=== PATIENT | male | born 1955 | race Caucasian/White ===

== ENCOUNTER 2025-01-25 08:53 | Outpatient (AMB) | payer MEDICARE, SELFPAY ==
--- OUTSIDE RECORDS SUMMARY | 2025-01-24 09:00 | XMS_ITS | Encounter Summary ---
Author Organization [facility] Address [address] [place] [address] Phone Care Team Providers Care Drum Puller Name Role Phone Alexis Desir MD Unavailable [phone] Ghulam Hancock MD Unavailable [phone] Alexis Desir MD Primary Care Provider [phone] Reason for Referral * Consultation (Within 1 month) - New Request Specialty Diagnoses / Procedures Referred By Juan Luis lawton Referred To Contact Alexis Desir MD [address] [place] [address], [address] [place] [address] Phone: tel: fax: mailto:[email or web address] Unknown, Lesia, Referral ID Status Reason Start Date Expiration Date V isits Requested Visits Authorized [id number] New Request 01/24/2025 01/18/2026 1 1 Reason for Visit * Reason Comments Follow Up Visit No complaints to [place]; BP continues to be erratic - has some home BP recordings on phone; Encounter Details Date Type Department Care Team (Late st Contact Info) Description 01/24/2025 9:00 AM EST Office Visit [facility] [address] [place] [address] [place] [address] Alexis Desir MD [address] [place] [address], [address] [place] [address] [email or web address] Primary hypertension (Primary Dx) Social History Tobacco Use Types Packs/Day Years Used Date Smoking Tobacco: Never Passive Smoke Exposure: Never Smokeless Tobacco: Never Alcohol Use Standard Drinks/Week Comments Yes 2 (1 standard drink = 0.6 oz pur e alcohol) Child or Family Care Answer Date Record ed Do you have problems with on e of the following making it difficult for you to work, study, or receive health care? No 04/11/2023 Education Answer Date Recorded Are you interested in more education? Not on ramone e 02/09/2024 Are you concerned about learning? Not on file 02/09/2024 No 02/09/2024 No 02/09/2024 Food Answer Date Recorded Within the past 6 months we worried whether our food would run out before we got money to buy more. Never True 04/11/2023 Within the past 6 months the food we bought just didn't last and we didn't have enough money to get more. Never True Residential Stability Answer Date Recor ded What is your housing situation today? I have guzman sing 04/11/2023 How many times have you move d in the past 12 months? Zero (I did not move) 04/11/2023 Paying for Meds Answer Date Recorded Do you have trouble paying for medicines? No 04/11/2023 Paying Utility Bills Answer Date Record ed Do you have trouble paying your heating or elect ricity bill? No 04/11/2023 Transportation Answer Date Recorded Has the lack of transportati on kept you from medical appointments or from getting medications? No 04/11/2023 Unemployment Answer Date Recorded Are you currently unemployed or working on a part-time or temporary basis, and looking for work? No 02/06/2022 Digital Access Answer Date Recorded No 04/11/2023 Yes 04/11/2023 Do you have reliable internet access at home? Ye s 04/11/2023 Do you have a device (e.g., phone, tablet, computer) with a working camera? Yes 04/11/2023 Intimate Partner Violence Answer Date R ecorded Are you denied basic needs s uch as food, clothing, or medical care? No 12/25/2024 In the past 12 months have y ou been in a relationship with a person who hurts, threatens, or tries to control you? No 12/25/2024 Are you denied basic needs s uch as food, clothing, or medical care? No 12/25/2024 In the past 12 months have y ou been in a relationship with a person who hurts, threatens, or tries to control you? 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, [employer] Not on file Not on file Not on file documented as of this encounter Last Filed Vital Signs Vital Sign Reading Time Taken Comments Blood Pressure 112/54 01/24/2025 9:02 AM EST Pulse 46 01/24/2025 9:02 AM EST Temperature - - Respiratory Rate - - Oxygen Saturation 98% 01/24/2025 9:02 AM EST Inhaled Oxygen Concentration - - Weight - - Height - - Body Mass Index - - documented in this encounter Miscellaneous Notes * Assessment & Plan Note - Alexis Desir MD - 01/24/2025 9:00 AM EST Associated Problem(s): Hypertensive disorder Orders: amLODIPine (NORVASC) 5 MG tablet; Take 1 tablet (5 mg total) by mouth daily. documented in this encounter Plan of Treatment Upcoming Encounters Date Type Department Care Team (Late st Contact Info) Description 01/26/2025 8:00 AM EST Office Visit [facility] [address] [facility] [address], [address] [place] [address] Ghulam Mata MD [address] [place] [address] 02/16/2025 9:00 AM EST Appointment [facility] [address] Alexis Desir MD [address] [place] [address] [email or web address] 02/16/2025 10:00 AM EST Appointment [address] [address] Alexis Desir MD [address] [place] [address] 02/16/2025 11:00 AM EST Appointment Non-Invasive Cardiology [address] [place] [address] Alexis Desir MD [address] [place] [address] [email or web address] 02/16/2025 12:00 PM EST Appointment [address] [address] Alexis Desir MD [address] [place] [address] Scheduled Referrals Name Type Priority Associated Diagnoses Order Schedule External Referral to Ophthalmology ([facility]) Outpatient Referral Routine Ordered: 01/24/2025 documented as of this encounter Visit Diagnoses Diagnosis Primary hypertension- Primary Unspecified essential hypertension documented in this encounter Additional Health Concerns Assessment Noted Time A Body Mass Index follow-up plan has been documented for the patient 04/23/2017 8:55 PM EST PHQ-2 Depression Total Score: 0 01/25/20 25 8:50 AM EST documented as of this encounter Care Teams Drum Puller Relationship Specialty Start Date End Date Alexis Desir MD [address] [place] [address] [email or web address] PCP - General 03/17/17 Alexis Desir MD [address] [place] [address], [address] [place] [address] [email or web address] Historical LMR Provider 12/26/16 Ghulam Hancock MD [address] [place], [place] [address] [place] [address] [email or web address] Historical LMR Provider 12/26/16 documented as of this encounter Additional Source Comments The information contained in this document represents components of the legal health record. It is not the complete legal health record.[facility]
--- NOTE | 2025-01-25 09:03 | MHC.OFFVIS ---
Intake Visit Reasons: erectile dysfunction/incontinence Intake Note: New patient presents today for initial visit for erectile dysfunction/incontinence Urology Medication:Sildenafil Blood Thinner:None Antibiotic Allergies:None PVR:0ml Allergies No Known Allergies Allergy (Verified 01/25/25 09:03) HPI Comments Details: 01/25/25-Virgilio is a 69-year-old male here as a new patient evaluation. History of Present Illness The patient is a 69-year-old individual presenting with erectile dysfunction and LUTS. The urinary urgency has been a significant concern, with the patient experiencing nocturia, needing to urinate three times during the night, and urgency upon standing, which has been progressively worsening over time. The patient does not wear pads and has not been on any medication for urinary symptoms prior to this visit. For erectile dysfunction, the patient has been on (HIMS) tadalafil 5 mg daily for six months, which has significantly improved symptoms. The patient previously tried sildenafil and testosterone shots with another urologist but found the current regimen more effective. Plan 1. Erectile Dysfunction - Continue tadalafil 5 mg daily as it has been effective. The patient prefers to use the HIMS versus obtain prescription from this office - Labs-- testosterone levels and PSA testing as part of ongoing management. 2. Urinary Urgency - Initiate tamsulosin in the evening to improve urinary flow. Discussed that there can be bladder muscle mottling causing thickening of the bladder muscle which may contribute to bladder spasms and may need other therapy management. - Order an ultrasound of the prostate and bladder to assess structural changes. - Follow-up in three months to evaluate the effectiveness of the treatment plan. [facility] Medical History Right wrist sprain Bursitis of left shoulder Urge incontinence Review of Systems Const All systems reviewed & are unremarkable except as noted in HPI and below Reports no additional complaints Eyes Reports no additional complaints ENT Reports no additional complaints Card Reports no additional complaints Resp Reports no additional complaints GI Reports no additional complaints Reports as per HPI Musc Reports no additional complaints Skin/Breast Reports system reviewed and no additional complaints, except as documented Neuro Reports no additional complaints Psych Reports no additional complaints Endo Reports no additional complaints Vijay/Lymph Reports no additional complaints Aller/Immun Reports no additional complaints Physical Exam Const General: healthy appearing, no acute distress and well developed Orientation/consciousness: patient oriented x3 HEENT Head: Yes normocephalic and Yes atraumatic Eyes Conjunctivae: conjunctivae normal Neck Neck: Yes normal visual inspection Chest Chest palpation & inspection: normal inspection of the chest Resp Effort & Inspection: normal respiratory effort GI Inspection: Yes normal to inspection Neuro General: patient oriented x3 Psych Appearance: grossly normal Affect: normal affect Assessment & Plan Assessment & Plan (1) Nocturia: Code(s): R35.1 - Nocturia Category: Medical (2) BPH loc w urin obs/LUTS: Code(s): N40.1 - Benign prostatic hyperplasia with lower urinary tract symptoms Category: Medical (3) Erectile dysfunction: Code(s): N52.9 - Male erectile dysfunction, unspecified Category: Medical (4) Urinary urgency: Code(s): R39.15 - Urgency of urination Category: Medical Plan Plan 1. Erectile Dysfunction - Continue tadalafil 5 mg daily as it has been effective. The patient prefers to use the HIMS versus obtain prescription from this office - Labs-- testosterone levels and PSA testing as part of ongoing management. 2. Urinary Urgency - Initiate tamsulosin in the evening to improve urinary flow. Discussed that there can be bladder muscle mottling causing thickening of the bladder muscle which may contribute to bladder spasms and may need other therapy management. - Order an ultrasound of the prostate and bladder to assess structural changes. - Follow-up in three months to evaluate the effectiveness of the treatment plan. Orders: Orders Testosterone, Free/Total Today N40.1 - Benign prostatic hyperplasia with lower urinary tract symptoms, R35.1 - Nocturia US retroperitoneal comp Today N40.1 - Benign prostatic hyperplasia with lower urinary tract symptoms, R35.1 - Nocturia PSA,Total (Free>4and<10) Today N40.1 - Benign prostatic hyperplasia with lower urinary tract symptoms, R35.1 - Nocturia Medications: New tamsulosin (Flomax) 0.4 mg PO BEDTIME 90 caps 2RF Coding Level of Care Code New Pt Level 4 (04143) Diagnoses Nocturia R35.1 BPH loc w urin obs/LUTS N40.1 Erectile dysfunction N52.9 Urinary urgency R39.15 IIEF-5 Questionnaire IIEF-5 How do you rate your confidence that you could get and keep an erection?: 5-Very High When you had erections with sexual stimulation, how often were your erections hard enough for penetration?: Almost always/ always During sexual intercourse, how often were you able to maintain your erection after your had penetrated(entered) your partner?: Most times(much more than half the time) During sexual intercourse, how difficult was it to maintain your erection to completion of intercourse?: Not Difficult When you attempted sexual intercourse, how often was it satisfactory for you?: Most times(much more than half the time) IIEF-5 Score IIEF-5 Score: 18
--- OUTSIDE RECORDS SUMMARY | 2025-01-25 10:33 | XMS_ITS | Encounter Summary ---
Author Organization [facility] Address [address] [facility] [address] [place] [address] Phone Care Team Providers Care Autopsy Pathologist Name Role Phone Alexis Desir MD Unavailable [phone] Ghulam Hancock MD Unavailable [phone] Alexis Desir MD Primary Care Provider [phone] Reason for Referral * - Closed Specialty Diagnoses / Procedures Referred By Juan Luis lawton Referred To Contact Diagnoses Dyspnea on exertion Procedures MCT (Mobile Cardiac Telemetry) Santiago Liang DO Phone: tel: fax: mailto: Referral ID Status Reason Start Date Expiration Date Visits Re quested Visits Authorized [id number] Closed 09/26/2021 09/26/2022 1 1 Encounter Details Date Type Department Care Team (Latest Contact Info) Description 09/26/2021 Ancillary Orders [facility] [address] [facility] 3rd Floor, [address] [place] [address] Santiago Liang DO [address] [facility] [address] [facility] [address] [place] [address] [email or web address] Dyspnea on exertion Social History Tobacco Use Types Packs/Day Years Used Date Smoking Tobacco: Never Smokeless Tobacco: Never Alcohol Use Standard Drinks/Week Comments Yes 3 (1 standard drink = 0.6 oz pur e alcohol) one beer a week Sex and Gender Information Value Date Recorded Sex Assigned at Male 01/23/2022 11:56 AM EST Legal Sex Male 9:56 PM EDT Gender Identity Male 01/23/2022 11:56 AM EST Sexual Orientation Not on file Occupation Industry Job Start Date Job End Date 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, 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, [employer] Not on file Not on file Not on file documented as of this encounter Plan of Treatment Upcoming Encounters Date Type Department Care Team (Late st Contact Info) Description 01/26/2025 8:00 AM EST Office Visit [facility] [address] [place] [address] 3rd Floor, [address] [place] [address] Ghulam Mata MD [address] [place] [address] 02/16/2025 9:00 AM EST Appointment [address] [address] Alexis Desir MD [address] [place] [address] 02/16/2025 10:00 AM EST Appointment [address] [address] Alexis Desir MD [address] [place] [address] 02/16/2025 11:00 AM EST Appointment Non-Invasive Cardiology [address] [place] [address] Alexis Desir MD [address] [place] [address] 02/16/2025 12:00 PM EST Appointment [facility], [facility] [address] [place] [address] Alexis Desir MD [address] [place] [address] [email or web address] Scheduled Orders Name Type Priority Associated Diagnoses Orde r Schedule MCT (Mobile Cardiac Telemetry) Cardiac Monitors Routine Dyspnea on exertion Expected: 08/19/2021, Expires: 08/12/2022 documented as of this encounter Visit Diagnoses Diagnosis Dyspnea on exertion Other dyspnea and respiratory abnormality documented in this encounter Additional Health Concerns Assessment Noted Time A Body Mass Index follow-up plan has been documented for the patient 04/23/2017 8:55 PM EST PHQ-2 Depression Total Score: 0 04/25/19 22 1:03 PM EST documented as of this encounter Care Teams Autopsy Pathologist Relationship Specialty Start Date End Date Alexis Desir MD [address] [place] [address] [email or web address] PCP - General 03/17/17 Alexis Desir MD [address] [place] [address] Historical LMR Provider 12/26/16 Ghulam Hancock MD [address] [place] [address] [email or web address] Historical LMR Provider 12/26/16 documented as of this encounter Additional Source Comments The information contained in this document represents components of the legal health record. It is not the complete legal health record.[facility]
--- OUTSIDE RECORDS SUMMARY | 2025-01-25 10:34 | XMS_ITS | Encounter Summary ---
Author Organization [facility] Address [address] [facility] [address] [place] [address] Phone Care Team Providers Care Bindery Machine Operator Name Role Phone Alexis Desir MD Unavailable [phone] Ghulam Hancock MD Unavailable [phone] Alexis Desir MD Primary Care Provider [phone] Encounter Details Date Type Department Care Team (Late st Contact Info) Description 04/28/2021 Procedure Pass [facility], Ct Scan - [address] [address] Social History Tobacco Use Types Packs/Day Years [...] Industry Job Start Date Job 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 Wish to be (Past 1 Month) No 04/28/2021 11:51 AM EST Giulia Howard RN 2. Non-Specific Active Suicidal Thoughts (Past 1 Month) No 04/28/2021 11:51 AM EST Giulia Howard RN 6. Suicidal Behavior (Lifetime) No 04/28/2021 11:51 AM EST Giulia Howard RN documented as of this encounter Plan of Treatment Upcoming Encounters Date Type Department Care Team (Late st Contact Info) Description 01/26/2025 8:00 AM EST Office Visit [facility] [address] [place] [address] 3rd Floor, [address] [place] [address] Ghulam Mata MD [address] [place] [address] 02/16/2025 9:00 AM EST Appointment [address] [address] Alexis Desir MD [address] [place] [address] 02/16/2025 10:00 AM EST Appointment [address] [address] Alexis Desir MD [address] [place] [address] 02/16/2025 11:00 AM EST Appointment Non-Invasive Cardiology [address] [place] [address] Alexis Desir MD [address] [place] [address] 02/16/2025 12:00 PM EST Appointment [address] [place] [address] Alexis Desir MD [address] [place] [address] [email or web address] documented as of this encounter Visit Diagnoses Not on filedocumented in this encounter Additional Health Concerns Assessment Noted Time A Body Mass Index follow-up plan has been documented for the patient 04/23/2017 8:55 PM EST PHQ-2 Depression Total Score: 0 04/25/19 22 1:03 PM EST documented as of this encounter Care Teams Bindery Machine Operator Relationship Specialty Start Date End Date Alexis Desir MD [address] [place] [address] PCP - General 03/17/17 Alexis Desir MD [address] [place] [address] Historical LMR Provider 12/26/16 Ghulam Hancock MD [address] [place] [address] [email or web address] Historical LMR Provider 12/26/16 documented as of this encounter Additional Source Comments The information contained in this document represents components of the legal health record. It is not the complete legal health record.[facility]
--- OUTSIDE RECORDS SUMMARY | 2025-01-25 10:34 | XMS_ITS | Encounter Summary ---
Author Organization [facility] Address [address] [place] [address] Phone Care Team Providers Care Process Engineer Name Role Phone Alexis Desir MD Unavailable [phone] Ghulam Hancock MD Unavailable [phone] Alexis Desir MD Primary Care Provider [phone] Encounter Details Date Type Department Care Team (Late st Contact Info) Description 01/19/2024 Procedure Pass [facility], [address] [place] [address] Social History Tobacco Use Types Packs/Day Years [...] Answer Date Recorded Are you interested in help w ith more adult education (for example, completing high school, GED, job training, learning the German language, technical skills, or developing parenting skills)? No 02/06/2022 Food Answer Date Recorded Within the past [...] your housing situation today? I have guzman gonzales 04/11/2023 How many times have you move [...] as food, clothing, or medical care? No 04/11/2023 In the past 12 months have y ou been in a relationship with a person who hurts, threatens, or tries to control you? No 04/11/2023 Are you denied basic needs s uch as food, clothing, or medical care? No 04/11/2023 In the past 12 months have y ou been in a relationship with a person who hurts, threatens, or tries to control you? 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, [employer] Not on file Not on file Not on file documented as of this encounter Plan of Treatment Upcoming Encounters Date Type Department Care Team (Late st Contact Info) Description 01/26/2025 8:00 AM EST Office Visit [facility] [address] 3rd Floor, [address] [place] [address] Ghulam Fernandez MD [address] [place] [address] 02/16/2025 9:00 AM EST Appointment [address] [address] Alexis Desir MD [address] [place] [address] 02/16/2025 10:00 AM EST Appointment [address] [address] Alexis Desir MD [address] [place] [address] 02/16/2025 11:00 AM EST Appointment Non-Invasive Cardiology [address] [place] [address] Alexis Desir MD [address] [place] [phone] 02/16/2025 12:00 PM EST Appointment [address] [address] Alexis Desir MD [address] [place] [phone] documented as of this encounter Visit Diagnoses Not on filedocumented in this encounter Additional Health Concerns Assessment Noted Time A Body Mass Index follow-up plan has been documented for the patient 04/23/2017 8:55 PM EST PHQ-2 Depression Total Score: 0 04/11/19 24 4:39 PM EST documented as of this encounter Care Teams Process Engineer Relationship Specialty Start Date End Date Alexis Desir MD [address] [place] [address], [address] [place] [address] [email or web address] PCP - General 03/17/17 Alexis Desir MD [address] [place] [address] [email or web address] Historical LMR Provider 12/26/16 Ghulam Hancock MD [address] [place] [address] [email or web address] Historical LMR Provider 12/26/16 documented as of this encounter Additional Source Comments The information contained in this document represents components of the legal health record. It is not the complete legal health record.[facility]
--- OUTSIDE RECORDS SUMMARY | 2025-01-25 10:34 | XMS_ITS | Encounter Summary ---
Author Organization [facility] Address [address] [place] [address] [place] [address] Phone Care Team Providers Care Coder Name Role Phone Alexis Desir MD Unavailable [phone] Ghulam Hancock MD Unavailable [phone] Alexis Desir MD Primary Care Provider [phone] Encounter Details Date Type Department Care Team (Latest Contact Info) Description 04/14/2021 Transcribe Orders [facility] [address] [place] [address] Henry Alvarez MD [address] [place] [address], [address] [address] [email or web address] Testicular hypofunction (Primary Dx); Screening for prostate cancer Social History Tobacco Use Types Packs/Day Years [...] 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, 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, [employer] Not on file Not on file Not on file documented as of this encounter Plan of Treatment Upcoming Encounters Date Type Department Care Team (Late st Contact Info) Description 01/26/2025 8:00 AM EST Office Visit [facility] [address] [facility] 3rd Floor, [address] [place] [address] Ghulam Mata MD [address] [place] [address] [email or web address] 02/16/2025 9:00 AM EST Appointment [address] [address] Alexis Desir MD [address] [place] [address], [address] [place] [address] [email or web address] 02/16/2025 10:00 AM EST Appointment [address] [address] Alexis Desir MD [address] [place] [address] [email or web address] 02/16/2025 11:00 AM EST Appointment Non-Invasive Cardiology [address] [place] [address] Alexis Desir MD [address] [place] [address] [email or web address] 02/16/2025 12:00 PM EST Appointment [address] [address] Alexis Desir MD [address] [place] [address] [email or web address] documented as of this encounter Results * Testosterone, total (04/14/2021 10:05 AM EST) TESTOSTERONE 318 249 - 836 ng/dL [facility] Blood 04/14/2021 10:0 5 AM EST 04/14/2021 1:45 PM EST Henry Alvarez MD LAB BLOOD BKR ORDERABLES Final Result Performing Organization Address City/[facility]/ZIP Co de Phone Number [address] [address] * (ABNORMAL) CBC (04/14/2021 10:05 AM EST) WBC 6.91 4.00 - 11.00 K/uL [facility] RBC 4.77 3.90 - 5.69 M/uL [facility] HGB 15.8 12.4 - 17.3 g/dL [facility] HCT 46.9 37.0 - 51.0 % [facility] PLT 161 140 - 430 K/uL [facility] MCV 98.3(H) 78.0 - 97.0 fL [facility] MCH 33.1(H) 25.0 - 33.0 pg [facility] MCHC 33.7 32.0 - 36.0 g/dL [facility] RDW 12.3 11.0 - 15.0 % [facility] MPV 9.4 8.4 - 12.8 fl [facility] NRBC 0.00 0 /100 WBCs [facility] ABSOLUTE NRBC 0.00 0 K/uL [facility] Blood 04/14/2021 10:0 5 AM EST 04/14/2021 1:45 PM EST Henry Alvarez MD LAB BLOOD BKR ORDERABLES Final Result Performing Organization Address [facility]/ZIP Co de Phone Number [address] [address] * PSA (screening) (04/14/2021 10:05 AM EST) PSA 2.01 0 - 4.00 ng/mL [facility] Blood 04/14/2021 10:0 5 AM EST 04/14/2021 10:07 AM EST us Henry Alvarez MD LAB BLOOD BKR ORDERABLES Final Result [address] [address] documented in this encounter Visit Diagnoses Diagnosis Testicular hypofunction- Primary Other testicular hypofunction Screening for prostate cancer Special screening for malignant neoplasm of prostate documented in this encounter Additional Health Concerns Assessment Noted Time A Body Mass Index follow-up plan has been documented for the patient 04/23/2017 8:55 PM EST PHQ-2 Depression Total Score: 0 04/25/19 19 8:17 AM EST documented as of this encounter Care Teams Coder Relationship Specialty Start Date End Date Alexis Desir MD [address] [place] [address] PCP - General 03/17/17 Alexis Desir MD [address] [place] [address] Historical LMR Provider 12/26/16 Ghulam Hancock MD [address] [place] [address] [email or web address] Historical LMR Provider 12/26/16 documented as of this encounter Additional Source Comments The information contained in this document represents components of the legal health record. It is not the complete legal health record.[facility]
--- OUTSIDE RECORDS SUMMARY | 2025-01-25 10:34 | XMS_ITS | Encounter Summary ---
Author Organization [facility] Address [address] [place] [address] [place] [address] Phone Care Team Providers Care Fast Food Shift Supervisor Name Role Phone Alexis Desir MD Unavailable [phone] Jose Hurt MD Unavailable Ghulam Hnacock MD Unavailable Alexis Desir MD Primary Care Provider Encounter Details Date Type Department Care Team (Latest Contact Info) Description 01/12/2017 Prep for Surgery [facility] Orthopedics & Sports Medicine [address] [place] [address] Vaishali Osuna MD [address] [place] [address] Orthopedics & Sports Medicine, [facility]. [place], [place] [id number] Acquired trigger finger (Primary Dx) Social History Tobacco Use Types Packs/Day Years Used Date Smoking Tobacco: Never Smokeless Tobacco: Never Alcohol Use Standard Drinks/Week Comments Yes 0 (1 standard drink = 0.6 oz pur e alcohol) Sex and Gender Information Value Date Recorded Sex Assigned at Male 01/23/2022 11:56 AM EST Legal Sex Male 9:56 PM EDT Gender Identity Male 01/23/2022 11:56 AM EST Sexual Orientation Not on file documented as of this encounter Plan of Treatment Upcoming Encounters Date Type Department Care Team ( Contact Info) Description 01/26/2025 8:00 AM EST Office Visit [facility] [address] [place] [address] 3rd Floor, [address] [place] [address] Ghulam Mata MD [address] [place] [address] 02/16/2025 9:00 AM EST Appointment [address] [address] Alexis Desir MD [address] [place] [address] 02/16/2025 10:00 AM EST Appointment [address] [address] Alexis Desir MD [address] [place] [address] 02/16/2025 11:00 AM EST Appointment Non-Invasive Cardiology [address] [place] [address] Alexis Desir MD [address] [place] [address] 02/16/2025 12:00 PM EST Appointment [address] [address] Alexis Desir MD [address] [place] [address] documented as of this encounter Visit Diagnoses Diagnosis Acquired trigger finger- Primary Trigger finger (acquired) documented in this encounter Care Teams Fast Food Shift Supervisor Relationship Specialty Start Date End Date Alexis Desir MD [address] [place] [address] PCP - General 03/17/17 Alexis Desir MD [address] [place] [address] Historical LMR Provider 12/26/16 Jose Hurt MD [address] [place] [address] Historical LMR Provider 12/26/16 03/15/21 Ghulam Hancock MD [address] [place] [address] [email or web address] Historical LMR Provider 12/26/16 documented as of this encounter Additional Source Comments The information contained in this document represents components of the legal health record. It is not the complete legal health record.[facility]
--- OUTSIDE RECORDS SUMMARY | 2025-01-25 10:35 | XMS_ITS | Encounter Summary ---
Author Organization [facility] Address [address] [place] [address] [place] [address] Phone Care Team Providers Care Snow Plow Operator Name Role Phone Alexis Desir MD Unavailable Jose Hurt MD Unavailable [phone] Ghulam Hancock MD Unavailable [phone] Alexis Desir MD Primary Care Provider Encounter Details Date Type Department Care Team (Late st Contact Info) Description 03/07/2020 Transcribe Orders [address] [place] [address] Henry Alvarez MD [address] [place] [address], [place] [address] [email or web address] Social History Tobacco Use Types Packs/Day Years [...] 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, [employer]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, [employer] Not on file Not on file Not on file documented as of this encounter Plan of Treatment Upcoming Encounters Date Type Department Care Team (Late st Contact Info) Description 01/26/2025 8:00 AM EST Office Visit [facility] [address] [place] [address] 3rd Floor, [address] [place] [address] Ghulam Mata MD [address] [place] [address] 02/16/2025 9:00 AM EST Appointment [address] [address] Alexis Desir MD [address] [place] [address] 02/16/2025 10:00 AM EST Appointment [address] [address] Alexis Desir MD [address] [place] [address] 02/16/2025 11:00 AM EST Appointment Non-Invasive Cardiology [address] [place] [address] Alexis Desir MD [address] [place] [address] 02/16/2025 12:00 PM EST Appointment [address] [address] Alexis Desir MD [address] [place] [address] documented as of this encounter Visit Diagnoses Not on filedocumented in this encounter Additional Health Concerns Assessment Noted Time A Body Mass Index follow-up plan has been documented for the patient 04/23/2017 8:55 PM EST PHQ-2 Depression Total Score: 0 04/25/19 8:17 AM EST documented as of this encounter Care Teams Snow Plow Operator Relationship Specialty Start Date End Date Alexis Desir MD [address] [place] [address] PCP - General 03/17/17 Alexis Desir MD [address] [place] [address] Historical LMR Provider 12/26/16 Jose Hurt MD [address] [place] [address] Historical LMR Provider 12/26/16 03/15/21 Ghulam Hancock MD [address] [place] [address] [email or web address] Historical LMR Provider 12/26/16 documented as of this encounter Additional Source Comments The information contained in this document represents components of the legal health record. It is not the complete legal health record.[facility]
--- OUTSIDE RECORDS SUMMARY | 2025-01-25 10:35 | XMS_ITS | Encounter Summary ---
Author Organization [facility] Address [address] [place] [address] [place] [address] Phone Care Team Providers Care Hotel Desk Clerk Name Role Phone Alexis Desir MD Unavailable [phone] Jose Hurt MD Unavailable Ghulam Hancock MD Unavailable [phone] Alexis Desir MD Primary Care Provider Encounter Details Date Type Department Care Team (Late st Contact Info) Description 02/05/2017 Procedure Pass [place] Admitting Dept - Virtual Department [address] [place] [address] Social History Tobacco Use Types Packs/Day Years [...] Description 01/26/2025 8:00 AM EST Office Visit [facility] [address] [facility] 3rd Floor, [address] [place] [address] Ghulam Mata MD [address] [place] [phone] 02/16/2025 9:00 AM EST Appointment [address] [address] Alexis Desir MD [address] [place] [address] 02/16/2025 10:00 AM EST Appointment [address] [address] Alexis Desir MD [address] [place] [address] 02/16/2025 11:00 AM EST Appointment Non-Invasive Cardiology [address] [place] [address] Alexis Desir MD [address] [place] [address] 02/16/2025 12:00 PM EST Appointment [address] [address] Alexis Desir MD [address] [place] [address] documented as of this encounter Visit Diagnoses Not on filedocumented in this encounter Care Teams Hotel Desk Clerk Relationship Specialty Start Date End Date Alexis Desir MD [address] [place] [address] PCP - General 03/17/17 Alexis Desir MD [address] [place] [address] [email or web address] Historical LMR Provider 12/26/16 Jose Hurt MD [address] [address] Historical LMR Provider 12/26/16 03/15/21 Ghulam Hancock MD [address] [place] [address] [email or web address] Historical LMR Provider 12/26/16 documented as of this encounter Additional Source Comments The information contained in this document represents components of the legal health record. It is not the complete legal health record.[facility]
--- OUTSIDE RECORDS SUMMARY | 2025-01-25 10:35 | XMS_ITS | Clinical Summary ---
Author Organization [facility] Address [address] [place] [address] [place] [id number] Phone Care Team Providers Care Automated Weaver Name Role Phone Alexis Desir MD Unavailable [phone] Ghulam Hancock MD Unavailable [phone] Alexis Desir MD Primary Care Provider Allergies Active Allergy Reactions Criticality Noted Date Comments Cat Dander Swelling Low 02/05/2017 Other 04/25/2018 Hay fever Medications ONETOUCH ULTRAMINI meter kitIndications:Ty pe 2 diabetes mellitus without complication, without long-term current use of insulin Use as instructed 1 each Active lancing device with lancets KitIndications:Ty pe 2 diabetes mellitus without complication, without long-term current use of insulin 1 each by Miscellaneous route as needed. 50 each 11 Active fluticasone propionate (FLONASE) 50 mcg/actuation nasal sprayIndications: Medication refill INSTILL 1 SPRAY IN EACH NOSTRIL ONCE A DAY. 48 mL 3 Active ONETOUCH ULTRA BLUE TEST STRIP Strp strips TEST BLOOD SUGAR ONCE DAILY Active aspirin 81 mg chewable tablet Take 1 tablet (81 mg total) by mouth daily. 30 tablet 1 022 Active lisinopril (PRINIVIL,ZESTRIL ) 40 MG tabletIndications :Medication refill TAKE 1 TABLET BY MOUTH EVERY DAY 90 tablet 3 025 Active naproxen (NAPROSYN) 500 MG tabletIndications :Acute bursitis of left shoulder,Right wrist sprain, initial encounter Take 1 tablet (500 mg total) by mouth 2 (two) times a day with meals. 60 tablet 1 025 Active empagliflozin (JARDIANCE) 10 mg tabletIndications :Type 2 diabetes mellitus without complication, without long-term current use of insulin,Chronic kidney disease, unspecified CKD stage Take 1 tablet (10 mg total) by mouth daily. 90 tablet 1 025 Active tadalafiL (CIALIS) 20 MG tablet Take 20 mg by mouth daily as needed for erectile dysfunction. Active atorvastatin (LIPITOR) 40 MG tabletIndications :Hyperlipidemia, unspecified hyperlipidemia type TAKE 1 TABLET BY MOUTH NIGHTLY AT BEDTIME 90 tablet 3 025 Active amLODIPine (NORVASC) 5 MG tabletIndications :Primary hypertension Take 1 tablet (5 mg total) by mouth daily. 90 tablet 3 025 Active atorvastatin (LIPITOR) 40 MG tabletIndications :Hyperlipidemia, unspecified hyperlipidemia type TAKE 1 TABLET BY MOUTH NIGHTLY AT BEDTIME 90 tablet 3 024 2024 Discontinued Active Problems Problem Noted Date Diagnosed Date Olecranon bursitis of right elbow 12/18/2023 Assessment & Plan (01/05/2024 8:25 PM EDT): This appears to be resolving. Will get x-ray given his area of point tenderness. Assessment & Plan (12/18/2023 9:06 PM EDT): Continue wrapping. Avoid pressure on the elbow. Discussed that I would not recommend an injection as the risk of infection is high. Varicose veins of both lower extremities Assessment & Plan (12/18/2023 9:04 PM EDT): Referred to cardiology for evaluation and to discuss ablation. Low testosterone 04/14/2023 Assessment & Plan (04/14/2023 8:22 PM EST): This is managed by urology. Diabetes mellitus 01/23/2022 Assessment & Plan (12/28/2024 4:44 PM EDT): His diabetes has been well controlled. Continue Jardiance. Assessment & Plan (10/31/2024 3:11 PM EDT): Will start Jardiance in place of metformin for diabetes control. We discussed possible side effects of this. Will get follow up A1c in 3 months and increase to 25 mg if indicated. Orders: empagliflozin (JARDIANCE) 10 mg tablet; Take 1 tablet (10 mg total) by mouth daily. Hemoglobin A1c; Future Assessment & Plan (01/23/2024 9:47 PM EST): He is not happy with his A1c. Will increase metformin to 1000 mg BID. Orders: metFORMIN (GLUCOPHAGE) 500 MG tablet; Take 2 tablets (1,000 mg total) by mouth 2 (two) times a day with meals. Assessment & Plan (04/14/2023 8:18 PM EST): Well controlled. Assessment & Plan (01/23/2022 3:45 PM EST): Patient takes oral metformin 500 mg twice daily. With his short stay expected, I will continue his metformin overnight. Glucose 101 at admission, hemoglobin A1c pending. CKD (chronic kidney disease) 01/23/2022 Overview (01/23/2022): mild Assessment & Plan (12/28/2024 4:44 PM EDT): This is monitored by Dr. Hopkins. It has been stable. Assessment & Plan (10/31/2024 3:11 PM EDT): Jardiance is indicated for chronic kidney disease. Orders: empagliflozin (JARDIANCE) 10 mg tablet; Take 1 tablet (10 mg total) by mouth daily. Assessment & Plan (04/14/2023 8:20 PM EST): Will continue to monitor. Assessment & Plan (01/23/2022 3:48 PM EST): History of CKD, mild. Creatinine in October was up to 1.8, previously 1.4-1.6. On presentation today creatinine near his baseline 1.7 with EGFR 44. -Avoid nephrotoxic agents -Continue to monitor. GEENA (obstructive sleep apnea) 01/23/2022 Overview (01/23/2022): mild, positional Assessment & Plan (01/23/2022 3:43 PM EST): Does not use CPAP. Mild, positional. No need for respiratory consult. Bradycardia 10/08/2021 Assessment & Plan (12/25/2021 8:21 AM EDT): His heart rate today was 54. He is on no AV rosa blockers. He does have low testosterone levels he is currently being worked up for this. It is unclear if this is playing a role. He does continue to feel tired and sleepy particular with sitting so he does not sit too long. He reports that he had a sleep study done years ago and this was unremarkable. His did state that she was able to notice 1 episode where he seemed to stop breathing and his heart seemed to pound out of his chest and then he started to breathe again. I discussed with the patient today about potentially having another sleep study but he does not want to do this. We did discuss his echocardiogram, his Holter monitor and his stress test which were all unremarkable for any concerning cardiac etiology. I will have him follow-up with Dr. Hernandez if his symptoms continue and after being worked up by his primary care for any other etiology that would be causing his bradycardia. Discussed today that if he had a syncopal event that he would need to go to the emergency room and this would be an indication for potential pacemaker placement. Assessment & Plan (10/08/2021 8:34 AM EDT): He reports new onset bradycardia starting back in the winter of this year. He has symptoms associated with bradycardia- including profound fatigue. He is not on any rate lowering medications. I will order an ETT to assess his heart rate/BP response to exercise and have him see EP in follow up regarding his symptomatic bradycardia. He does have a family history of CAD (parents both had MIs but reportedly lived very unhealthy lifestyle). Hypertensive disorder 04/23/2017 Assessment & Plan (01/24/2025 9:22 AM EST): Orders: amLODIPine (NORVASC) 5 MG tablet; Take 1 tablet (5 mg total) by mouth daily. Assessment & Plan (12/28/2024 4:44 PM EDT): His blood pressure is well controlled. There is the possibility of low blood pressure that could be contributing to dizziness. He will remain on lisinopril. Assessment & Plan (04/14/2023 8:17 PM EST): Under good control. Assessment & Plan (01/23/2022 3:48 PM EST): Permissive hypertension as above. Hydrochlorothiazide and lisinopril held on arrival. Will monitor closely. Assessment & Plan (12/25/2021 8:19 AM EDT): Blood pressure 120/84. He is on hydrochlorothiazide 25 mg daily, lisinopril 40 mg daily which he will remain on. He is encouraged to follow heart healthy diet to continue exercising and reduce sodium is much as he can. Assessment & Plan (10/08/2021 8:32 AM EDT): BP well controlled on current dose of HCTZ and lisinopril. Will repeat a BMP. Assessment & Plan (08/12/2021 8:32 AM EDT): This is not well controlled I have added hydrochlorothiazide 25 mg once a day. He is already on lisinopril 40 mg a day which is a great drug given the renal protective effects in the setting of diabetes. I did explain this to him and his . Hyperlipidemia 04/23/2017 Assessment & Plan (12/28/2024 4:44 PM EDT): Continue atorvastatin. Assessment & Plan (04/14/2023 8:19 PM EST): Continue atorvastatin. Assessment & Plan (01/23/2022 3:48 PM EST): Statin therapy continued. Neurology recommends atorvastatin 80 mg nightly. Simvastatin discontinued. Lipid panel pending for the morning. Assessment & Plan (08/12/2021 8:32 AM EDT): Not quite controlled LDL should be less than 70 mg/dL as discussed above Trigger ring finger of right hand Resolved Problems Problem Noted Date Diagnosed Date Resolved Date Dupuytren's contracture of right hand 03/31/2023 04/14/2023 Transient ischemic attack (TIA) 02/08/2022 04/14/2023 Vision, loss, sudden, right 01/23/2022 01/24/2022 Assessment & Plan (01/23/2022 3:46 PM EST): Consistent with amaurosis fugax (TIA) [facility] neurology recommendations appreciated: -Please allow for permissive HTN with SBP goal <220. If SBP > 220, can administer IV Labetalol prn or start a nicardipine/clevidipine drip if persistently high. -Administer Atorvastatin 80 mg daily. -Administer Plavix 300 mg and ASA 325 mg and then continue with ASA 81/Plavix 75 mg for 21 days and thereafter ASA 81 only. -Stroke labs: (Lipid panel, HgA1c, TSH, ESR, CRP) -Brain MRI without contrast -Transthoracic echo (TTE), however he did have a normal study in late September 2021. Repeat not needed at this time and not available over the weekend. - Neck imaging previously performed with CTA - Maintain on telemetry, consider ambulatory heart monitor on discharge. -Consult Neurology for continued care. BRADLEY (acute kidney injury) 01/23/2022 Amaurosis fugax of right eye 01/23/2022 04/14/2023 Impaired fasting glucose 04/23/201709/2023 Assessment & Plan (08/12/2021 8:32 AM EDT): A1c is 6 Encounters Date Type Department Care Team Description 01/24/2025 9:00 AM EST Office Visit [address] [place] [address] Alexis Desir MD Primary hypertension (Primary Dx) 01/14/[address] [place] [address] Alexis Desir MD Medication Refill 12/27/2024 Orders Only [address] [place] [address] Alexis Desir MD Dizziness 12/25/2024 1:15 PM EDT Office Visit [address] [place] [address] Alexis Desir MD Medicare annual wellness visit, initial (Primary Dx); Dizziness; Primary hypertension; Type 2 diabetes mellitus without complication, without long-term current use of insulin; Hyperlipidemia, unspecified hyperlipidemia type; Chronic kidney disease, unspecified CKD stage 10/31/2024 2:00 PM EDT Office Visit [address] [place] [address] Alexis Desir MD Type 2 diabetes mellitus without complication, without long-term current use of insulin (Primary Dx); Chronic kidney disease, unspecified CKD stage 10/27/2024 7:46 AM EDT - 10/27/2024 11:59 PM EDT Hospital Encounter [facility] [place] [address] [place] [address] [place] [address] Osbaldo Hopkins MD Discharge Disposition: Home or Self Care 10/27/2024 Transcribe Orders [facility] [place] [address] [place] [address] [place] [address] Osbaldo Hopkins MD Chronic kidney disease, unspecified CKD stage (Primary Dx); Primary hypertension; Hyperlipidemia, unspecified hyperlipidemia type from Last 3 Months Immunizations Immunization Administration Dates Next Due COVID-19 (Pre-12/28) Moderna Vaccine, mRNA, PF 12/19/2021 COVID-19 Moderna Spikevax Vaccine 12+ 12/18/2022 Hepatitis A, Adult 02/27/2021 Hepatitis B Adult 02/27/2021 INFLUENZA, SPLIT VIRUS, TRIV ALENT W/ PRESERVATIVE IM 12/19/2013 Influenza High-Dose Quadriva lent Preservative Free IM 12/18/2022 Influenza High-Dose Trivalen t Preservative Free IM 12/25/2024,12/10/2023 Influenza Quadrivalent Preservative Free IM 12/06,12/26/2020,12/28/2019 Influenza Quadrivalent w/ Preservative IM 2018,02/17/2016,02/11/2015 Influenza, Unspecified Formulation 11/23/2017 Pneumococcal conjugate PCV13 01/17/2020 Pneumococcal polysaccharide PPSV23 02/06/2022 Td (adult) 5 Lf Tetanus Toxo id, PF, Adsorbed 03/19/2020 Tdap 04/30/2009 Typhoid, ViCPs 02/27/2021 Zoster live 02/17/2016 Zoster recombinant 03/19/2020,01/17/2020 Family History Medical History Relation Comments Hypertension Brother Stroke Brother 57 No Known Problems Daughter Alcohol abuse Father Anxiety disorder Father CV disease Father Depression Father Diabetes mellitus Father Heart attack Father 70 Hyperlipidemia Father Hypertension Father Alcohol abuse Mother Anxiety disorder Mother CV disease Mother Depression Mother Heart attack Mother Hyperlipidemia Mother Hypertension Mother Migraines Mother Psoriasis Mother Alcohol abuse Sister 2 No Known Problems Son Relation Status Comments Brother Alive Daughter Alive Father smoker Mother (Age 83) of clot i n lower back Sibling Sister 1 Alive Sister 2 Alive drug abuse Son Alive Social History Tobacco Use Types Packs/Day Years [...] Industry Job Start Date Job End Date 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, 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[employer], [employer] Not on file Not on file Not on file Last Filed Vital Signs Vital Sign Reading Time Taken Comments Blood Pressure 112/54 01/24/2025 9:02 AM EST Pulse 46 01/24/2025 9:02 AM EST Temperature 36.4 C (97.6 F) 12/25/2024 1:11 PM EDT Respiratory Rate 15 10/04/2023 5:56 PM EDT Oxygen Saturation 98% 01/24/2025 9:02 AM EST Inhaled Oxygen Concentration - - Weight 89.2 kg (196 lb 9.6 oz) 12/25/2024 1:11 P M EDT Height 183.4 cm (6' 0.21 ) 12/25/2024 1:11 PM ED T Body Mass Index 26.51 12/25/2024 1:11 PM EDT Plan of Treatment Upcoming Encounters Date Type Department Care Team (Late st Contact Info) Description 01/26/2025 8:00 AM EST Office Visit [facility] [address] [place] [address] [address] Floor, [address] [place] [address] Ghulam Mata MD [address] [place] [address] 02/16/2025 9:00 AM EST Appointment [address] [address] Alexis Desir MD [address] [place] [phone] 02/16/2025 10:00 AM EST Appointment [address] [address] Alexis Desir MD [address] [place] [address] 02/16/2025 11:00 AM EST Appointment Non-Invasive Cardiology [address] [place] [address] Alexis Desir MD [address] [place] [address] 02/16/2025 12:00 PM EST Appointment [facility], Nuclear Medicine - [facility] [address] [place] [address] Alexis Desir MD [address] [place] [address], [address] [place] [address] Health Maintenance Due Date Last Done Comments COLOGUARD 07/27/1999 FIT TEST 07/27/1999 FOBT 07/27/1999 SIGMOIDOSCOPY 07/27/1999 VIRTUAL COLONOSCOPY 07/27/1999 RSV VACCINE (1 - Risk 50-74 years 1-dose series) 2004 DIABETIC EYE EXAM 04/26/2021 HEMOGLOBIN A1C 03/14/2025 09/11/2024, 1109/2023, 04/12/2023, Additional history exists COVID-19 VACCINE ( season) 2025 11/26/2024, 12/10/2023, 06/12/2023, Additional history exists BLOOD PRESSURE 07/24/2025 01/24/2025 CREATININE LEVEL 10/27/2025 10/27/2024, 09/2024, 06/23/2024, Additional history exists POTASSIUM LEVEL 10/27/2025 10/27/2024, 070 09/2024, 06/23/2024, Additional history exists DEPRESSION SCREENING 01/24/2026 01/24/2025 COLONOSCOPY 03/17/2027 03/17/2017 COLORECTAL CANCER SCREENING 03/17/2027 Adult Td,Tdap Booster 03/19/2030 03/19/2020, 010 HEPATITIS C SCREENING Completed 03/30/2017 ZOSTER VACCINES Completed 03/19/2020, 01/06, 02/17/2016 HEPATITIS A VACCINES Aged Out 02/27/2021 No long er eligible based on patient's age to complete this topic PNEUMOCOCCAL VACCINES (50+ years) Completed 02/06/2022, 01/17/2020 INFLUENZA VACCINE Completed 12/25/2024, , 12/18/2022, Additional history exists SMOKING STATUS SCREENING (Once After 26 Yrs) Completed 01/24/2025 HIB VACCINES Aged Out No longer eligi ble based on patient's age to complete this topic MENINGOCOCCAL VACCINES (ACWY) Aged Out No longer eligible based on patient's age to complete this topic MENINGOCOCCAL VACCINES (B) Aged Out N o longer eligible based on patient's age to complete this topic Medical Devices Not on file Procedures Procedure Name Priority Date/Time Associated Diagnosis Comments MICROALBUMIN/CREATI NINE RATIO, RANDOM URINE Routine 10/27/2024 7:52 AM EDT Chronic kidney disease, unspecified CKD stage Primary hypertension Hyperlipidemia, unspecified hyperlipidemia type RENAL PANEL Routine 10/27/2024 7:52 AM EDT Chronic kidney disease, unspecified CKD stage Primary hypertension Hyperlipidemia, unspecified hyperlipidemia type 25-OH VITAMIN D Routine 10/27/2024 7:52 AM EDT Chronic kidney disease, unspecified CKD stage Primary hypertension Hyperlipidemia, unspecified hyperlipidemia type PARATHYROID HORMONE (PTH) Routine 10/27/2024 7:52 AM EDT Chronic kidney disease, unspecified CKD stage Primary hypertension Hyperlipidemia, unspecified hyperlipidemia type IRON AND IRON BINDING CAPACITY Routine 10/27/2024 7:52 AM EDT Chronic kidney disease, unspecified CKD stage Primary hypertension Hyperlipidemia, unspecified hyperlipidemia type FERRITIN Routine 10/27/2024 7:52 AM EDT Chronic kidney disease, unspecified CKD stage Primary hypertension Hyperlipidemia, unspecified hyperlipidemia type CBC Routine 10/27/2024 7:52 AM EDT Chronic kidney disease, unspecified CKD stage Primary hypertension Hyperlipidemia, unspecified hyperlipidemia type CYSTATIN C WITH ESTIMATED GLOMERULAR FILTRATION RATE (EGFR) Routine 10/27/2024 7:52 AM EDT Chronic kidney disease, unspecified CKD stage Primary hypertension Hyperlipidemia, unspecified hyperlipidemia type HEMOGLOBIN A1C Routine 09/11/2024 7:57 AM EDT Type 2 diabetes mellitus without complication, without long-term current use of insulin HEPATITIS C ANTIBODY, QUALITATIVE Routine 03/30/2017 4:38 PM EST Screen for STD (sexually transmitted disease) COLONOSCOPY FOR RESULT ENTRY ONLY Routine 03/17/2017 from Last 3 Months or Most Recently Relevant to Health Maintenance Results * (ABNORMAL) Cystatin C (10/27/2024 7:52 AM EDT) Cystatin C 1.68(H) 0.67 - 1.21 mg/L [facility] DPT OF LAB MED AND PAT+ eGFR (Cystatin C) 38(L) >60 mL/min/BSA [facility] DPT OF LAB MED AND PAT+ Comment: (NOTE) Estimated GFR calculated using the CKD-EPI Cystatin C (2012) equation. ADDITIONAL INFORMATION Cystatin C-based eGFR may differ substantially from creatinine- based eGFR in patients with abnormal muscle mass or acutely changing renal function. Please interpret together with relevant clinical features. On 08/01/2020 the cystatin C assay method changed. Cystatin C eGFR results > 50 ml/min/1.73m2 are approximately 10% lower with the new assay. Blood 10/27/2024 7:52 AM EDT 10/27/2024 7:56 AM EDT us Osbaldo Hopkins MD LAB BLOOD BKR ORDERABLES Final R esult [facility] DPT OF LAB MED AND PAT+ [address] [place] [address] * (ABNORMAL) Renal panel (10/27/2024 7:52 AM EDT) SODIUM 135 133 - 146 mmol/L [facility] POTASSIUM 4.4 3.3 - 5.1 mmol/L [facility] CHLORIDE 100 96 - 108 mmol/L [facility] CO2 21 21 - 35 mmol/L [facility] GLUCOSE 116(H) 70 - 99 mg/dL [facility] BUN 35(H) 6 - 19 mg/dL [facility] CREATININE 2.10(H) 0.5 - 1.5 mg/dL [facility] CALCIUM 9.5 8.4 - 10.3 mg/dL [facility] PHOSPHORUS 3.7 2.7 - 4.5 mg/dL [facility] ALBUMIN 4.2 3.9 - 4.8 g/dL [facility] EGFR 33(L) >59 mL/min/1.7 3m2 [facility] Comment:Estimated glomerular filtration rate calculated using the CKD-EPI refit equation. ANION GAP 18 10 - 20 mmol/L [facility] Blood 10/27/2024 7:52 AM EDT 10/27/2024 7:56 AM EDT us Osbaldo Hopkins MD LAB BLOOD BKR ORDERABLES Final R esult Performing Organization Address City/[facility]/ZIP Co de Phone Number [address] [address] * (ABNORMAL) Iron and iron binding capacity (10/27/2024 7:52 AM EDT) IRON 55 45 - 160 ug/dL [facility] IRON BINDING CAPACITY 329 228 - 428 ug/dL [facility] TRANSFERRIN SATURAT. 17(L) 20 - 55 % [facility] Blood 10/27/2024 7:52 AM EDT 10/27/2024 7:56 AM EDT Osbaldo Hopkins MD LAB BLOOD BKR ORDERABLES Final R esult Performing Organization Address City/[facility]/ZIP Co de Phone Number [address] [address] * Microalbumin/creatinine ratio, random urine (10/27/2024 7:52 AM EDT) URINE MICROALBUMIN 1.8 0 - 2.3 mg/dL [facility] URINE CREATININE 181 mg/dL [facility] MICROALB/CRE RATIO 9.9 0 - 20 mg/g Cre [facility] Urine (Urine) 10/27/2024 7:5 2 AM EDT 10/27/2024 7:57 AM EDT us Osbaldo Hopkins MD LAB URINE ORDERABLES Final Resul t [address] [address] * 25-OH vitamin D (10/27/2024 7:52 AM EDT) 25 OH VIT D (TOTAL) 46 30 - 60 ng/mL [facility] Blood 10/27/2024 7:52 AM EDT 10/27/2024 7:56 AM EDT us Osbaldo Hopkins MD LAB BLOOD BKR ORDERABLES Final R esult Performing Organization Address City/[facility] Co de Phone Number [address] [address] * (ABNORMAL) CBC (10/27/2024 7:52 AM EDT) WBC 5.48 4.00 - 11.00 K/uL [facility] RBC 4.64 4.50 - 5.90 M/uL [facility] HGB 14.8 13.5 - 17.5 g/dL [facility] HCT 45.7 41.0 - 53.0 % [facility] PLT 155 150 - 450 K/uL [facility] MCV 98.5 80.0 - 100.0 fL [facility] MCH 31.9(H) 27.0 - 31.0 pg [facility] MCHC 32.4 32.0 - 36.0 g/dL [facility] RDW 13.0 11.5 - 14.5 % [facility] MPV 9.2 8.4 - 12.0 fL [facility] NRBC 0.00 0.00 /100 WBCs [facility] ABSOLUTE NRBC 0.00 0.00 K/uL [facility] Blood 10/27/2024 7:52 AM EDT 10/27/2024 7:56 AM EDT us Osbaldo Hopkins MD LAB BLOOD BKR ORDERABLES Final R esult [address] [address] * Parathyroid hormone (PTH) (10/27/2024 7:52 AM EDT) PARATHYROID HORMONE 43 15 - 65 pg/mL [facility] Blood 10/27/2024 7:52 AM EDT 10/27/2024 7:57 AM EDT us Osbaldo Hopkins MD LAB BLOOD BKR ORDERABLES Final R esult Performing Organization Address [facility]/ZIP Co de Phone Number [address] [address] * Ferritin (10/27/2024 7:52 AM EDT) FERRITIN 45 30 - 400 ug/L [facility] Blood 10/27/2024 7:52 AM EDT 10/27/2024 7:56 AM EDT us Osbaldo Hopkins MD LAB BLOOD BKR ORDERABLES Final R esult Performing Organization Address [facility] Co de Phone Number [address] [address] * (ABNORMAL) Hemoglobin A1c (09/11/2024 7:57 AM EDT) HEMOGLOBIN A1C 6.5(H) 4.3 - 5.8 % [facility] Blood 09/11/2024 7:57 AM EDT 09/11/2024 8:12 AM EDT us Alexis Desir MD LAB BLOOD BKR ORDERABLES Fi nal Result Performing Organization Address [facility]/ZIP Co de Phone Number [address] [address] * Hepatitis C antibody, qualitative (03/30/2017 4:38 PM EST) HCV Negative Negative [facility] Comment: This is a screening test and should be confirmed with molecular testing Blood 03/30/2017 4:38 PM EST 03/30/2017 4:44 PM EST us Alexis Desir MD LAB BLOOD BKR ORDERABLES Fi nal Result [address] [address] * COLONOSCOPY FOR RESULT ENTRY ONLY (03/17/2017) us Historical Provider HEALTH MAINTENANCE Final Result from Last 3 Months or Most Recently Relevant to Health Maintenance Insurance MEDICARE PART A & B MEDICARE PART A & B [place] [address] MEDICARE PART A & B MEDICARE PART [place] [id number] MEDICARE PART A & B [place] [address] MEDICARE PART A & [place] [id number] MEDICARE PART A & B MEDICARE PART A & B Advance Directives For more information, please contact: [phone] (9AM - 5PM Lydia/[facility], Wednesday-Wednesday) * Full Code (Latest Code Status on File) Date Activated Date Inactivated Comments 01/23/2022 3:41 PM Question Answer Comments Code Status Confirmed With: Patient * Full Code (Presumed) Date Activated Date Inactivated Comments 02/05/2017 11:29 AM 02/05/2017 4:41 PM Care Teams Automated Weaver Relationship Specialty Start Date End Date Alexis Desir MD [address] [place] [id number] [email or web address] PCP - General 03/17/17 Alexis Desir MD [address] [place] [phone] Historical LMR Provider 12/26/16 Ghulam Hancock MD [address] [place] [address] [email or web address] Historical LMR Provider 12/26/16 Additional Source Comments The information contained in this document represents components of the legal health record. It is not the complete legal health record.[facility]
--- OUTSIDE RECORDS SUMMARY | 2025-01-25 10:35 | XMS_ITS | Encounter Summary ---
Author Organization [facility] Address [address] [place] [address] Phone Care Team Providers Care Licensed Nurse Practitioner Name Role Phone Alexis Desir MD Unavailable [phone] Ghulam Hancock MD Unavailable [phone] Alexis Desir MD Primary Care Provider [phone] Encounter Details Date Type Department Care Team (Late st Contact Info) Description 03/31/2023 Procedure Pass OR Admitting Dept - Virtual Department [address] [place] [address] Social History Tobacco Use Types Packs/Day Years Used Date Smoking Tobacco: Never Smokeless Tobacco: Never Alcohol Use Standard Drinks/Week Comments Yes 3 (1 standard drink = 0.6 oz pur e alcohol) Child or Family Care Answer Date Record ed Do you have problems with on e of the following making it difficult for you to work, study, or receive health care? No 02/06/2022 Education Answer Date Recorded Are you interested in help w ith more adult education (for example, completing high school, GED, job training, learning the Montenegrin language, technical skills, or developing parenting skills)? No 02/06/2022 Food Answer Date Recorded Within the past 6 months we worried whether our food would run out before we got money to buy more. Never True 02/06/2022 Within the past 6 months the food we bought just didn't last and we didn't have enough money to get more. Never True Residential Stability Answer Date Recor ded What is your housing situation today? I have guzman gonzales 02/06/2022 How many times have you moved in the past 12 mon ths? One time 02/06/2022 Paying for Meds Answer Date Recorded Do you have trouble paying for medicines? No 02/06/2022 Paying Utility Bills Answer Date Record ed Do you have trouble paying your heating or elect ricity bill? No 02/06/2022 Transportation Answer Date Recorded Has the lack of transportati on kept you from medical appointments or from getting medications? No 02/06/2022 Unemployment Answer Date Recorded Are you currently unemployed or working on a part-time or temporary basis, and looking for work? No 02/06/2022 Digital Access Answer Date Recorded No 08/03/2022 No 08/03/2022 Reliable internet access at home? Not on file 08/03/2022 Device with a working camera? 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, [employer] Not on file Not on file Not on file documented as of this encounter Plan of Treatment Upcoming Encounters Date Type Department Care Team (Late st Contact Info) Description 01/26/2025 8:00 AM EST Office Visit [facility] [address] [place] [address] 3rd Floor, [address] [place] [address] Ghulam Mata MD [address] [place] [address] 02/16/2025 9:00 AM EST Appointment [facility] [address] [place] [address] Alexis Desir MD [address] [place] [address], 2nd [place] [address] 02/16/2025 10:00 AM EST Appointment [address] [address] Alexis Desir MD [address] [place] [address] [email or web address] 02/16/2025 11:00 AM EST Appointment Non-Invasive Cardiology [address] [place] [address] Alexis Desir MD [address] [place] [address] 02/16/2025 12:00 PM EST Appointment [address] [address] Alexis Desir MD [address] [place] [address] documented as of this encounter Visit Diagnoses Not on filedocumented in this encounter Additional Health Concerns Assessment Noted Time A Body Mass Index follow-up plan has been documented for the patient 04/23/2017 8:55 PM EST PHQ-2 Depression Total Score: 0 02/07/20 22 2:59 PM EST documented as of this encounter Care Teams Licensed Nurse Practitioner Relationship Specialty Start Date End Date Alexis Desir MD [address] [place] [address] PCP - General 03/17/17 Alexis Desir MD [address] [place] [address] Historical LMR Provider 12/26/16 Ghulam Hancock MD [address] [place] [address] [email or web address] Historical LMR Provider 12/26/16 documented as of this encounter Additional Source Comments The information contained in this document represents components of the legal health record. It is not the complete legal health record.[facility]
--- OUTSIDE RECORDS SUMMARY | 2025-01-25 10:35 | XMS_ITS | Encounter Summary ---
Author Organization [facility] Address [address] [place] [address] [place] [address] Phone Care Team Providers Care File Clerk Name Role Phone Alexis Desir MD Unavailable Jose Hurt MD Unavailable Ghulam Hancock MD Unavailable Alexis Desir MD Primary Care Provider Encounter Details Date Type Department Care Team (Latest Contact Info) Description 07/05/2020 Transcribe Orders [address] [place] [address] Henry Alvarez MD [address] [place] [address], [place] [address] [email or web address] Erectile dysfunction due to diseases classified elsewhere (Primary Dx) Social History Tobacco Use Types [...] Industry Job 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, 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, as Not on file Not on file Not on file documented as of this encounter Plan of Treatment Upcoming Encounters Date Type Department Care Team (Late st Contact Info) Description 01/26/2025 8:00 AM EST Office Visit [facility] [address] [place] [address] 3rd Floor, [address] [place] [address] Ghulam Mata MD [address] [place] [address] 02/16/2025 9:00 AM EST Appointment [address] [address] Alexis Desir MD [address] [place] [address], [address] [place] [address] 02/16/2025 10:00 AM EST Appointment [address] [address] Alexis Desir MD [address] [place] [address] 02/16/2025 11:00 AM EST Appointment Non-Invasive Cardiology [address] [place] [address] Alexis Desir MD [address] [place] [address] 02/16/2025 12:00 PM EST Appointment [address] [address] Alexis Desir MD [address] [place] [address] documented as of this encounter Results * CBC (07/05/2020 9:23 AM EDT) WBC 5.78 4.00 - 11.00 K/uL [facility] RBC 5.07 3.90 - 5.69 M/uL [facility] HGB 16.4 12.4 - 17.3 g/dL [facility] HCT 48.9 37.0 - 51.0 % [facility] PLT 174 140 - 430 K/uL [facility] MCV 96.4 78.0 - 97.0 fL [facility] MCH 32.3 25.0 - 33.0 pg [facility] MCHC 33.5 32.0 - 36.0 g/dL [facility] RDW 12.6 11.0 - 15.0 % [facility] MPV 9.4 8.4 - 12.8 fl [facility] NRBC 0.00 0 /100 WBCs [facility] ABSOLUTE NRBC 0.00 0 K/uL [facility] Blood 07/05/2020 9:23 AM EDT 07/05/2020 9:25 AM EDT Henry Alvarez MD LAB BLOOD BKR ORDERABLES Final Result [address] [address] * (ABNORMAL) Testosterone, total (07/05/2020 9:23 AM EDT) TESTOSTERONE 227(L) 249 - 836 ng/dL [facility] Blood 07/05/2020 9:23 AM EDT 07/05/2020 9:25 AM EDT Henry Alvarez MD LAB BLOOD BKR ORDERABLES Final Result [address] [address] * PSA (screening) (07/05/2020 9:23 AM EDT) PSA 1.70 0 - 4.00 ng/mL [facility] Blood 07/05/2020 9:23 AM EDT 07/05/2020 9:26 AM EDT us Henry Alvarez MD LAB BLOOD BKR ORDERABLES Final Result [address] [address] documented in this encounter Visit Diagnoses Diagnosis Erectile dysfunction due to diseases classified elsewhere- Primary documented in this encounter Additional Health Concerns Assessment Noted Time A Body Mass Index follow-up plan has been documented for the patient 04/23/2017 8:55 PM EST PHQ-2 Depression Total Score: 0 04/25/19 19 8:17 AM EST documented as of this encounter Care Teams File Clerk Relationship Specialty Start Date End Date Alexis Desir MD [address] [place] [address] PCP - General 03/17/17 Alexis Desir MD [address] [place] [address] Historical LMR Provider 12/26/16 Jose Hurt MD [address] [place] [address] Historical LMR Provider 12/26/16 03/15/21 Ghulam Hancock MD [address] [place] [address] [email or web address] Historical LMR Provider 12/26/16 documented as of this encounter Additional Source Comments The information contained in this document represents components of the legal health record. It is not the complete legal health record.[facility]
--- OUTSIDE RECORDS SUMMARY | 2025-01-25 10:35 | XMS_ITS | Encounter Summary ---
Author Organization [facility] Address [address] [place] [address] Phone Care Team Providers Care Shop Laborer Name Role Phone Alexis Desir MD Unavailable Ghulam Hancock MD Unavailable [phone] Alexis Desir MD Primary Care Provider Encounter Details Date Type Department Care Team (Late st Contact Info) Description 12/27/2024 Orders Only [facility] [address] [place] [address] Alexis Desir MD [address] [facility], [address]nd [place] [address] [email or web address] Dizziness Social History Tobacco Use Types Packs/Day Years [...] Industry Job 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 Date 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 End Date 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, 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, [employer] Not on file Not on file Not on file documented as of this encounter Plan of Treatment Upcoming Encounters Date Type Department Care Team (Late st Contact Info) Description 01/26/2025 8:00 AM EST Office Visit [facility] [address] [place] [address] 3rd Floor, [address] [place] [address] Ghulam Mata MD [address] [place] [address] 02/16/2025 9:00 AM EST Appointment [address] [address] Alexis Desir MD [address] [place] [address] 02/16/2025 10:00 AM EST Appointment [address] [address] Alexis Desir MD [address] [place] [address] 02/16/2025 11:00 AM EST Appointment Non-Invasive Cardiology [address] [place] [address] Alexis Desir MD [address] [place] [address] 02/16/2025 12:00 PM EST Appointment [address] [address] Alexis Desir MD [address] [place] [address] documented as of this encounter Visit Diagnoses Diagnosis Dizziness Dizziness and giddiness documented in this encounter Additional Health Concerns Assessment Noted Time A Body Mass Index follow-up plan has been documented for the patient 04/23/2017 8:55 PM EST PHQ-2 Depression Total Score: 0 12/26/19 25 1:18 PM EDT documented as of this encounter Care Teams Shop Laborer Relationship Specialty Start Date End Date Alexis Desir MD [address] [place] [address] [email or web address] PCP - General 03/17/17 Alexis Desir MD [address] [place] [address] [email or web address] Historical LMR Provider 12/26/16 Ghulam Hancock MD [address] [place] [address] [email or web address] Historical LMR Provider 12/26/16 documented as of this encounter Additional Source Comments The information contained in this document represents components of the legal health record. It is not the complete legal health record.[facility]
--- OUTSIDE RECORDS SUMMARY | 2025-01-25 10:36 | XMS_ITS | Clinical Summary ---
Author Organization [facility], Address [address] [place] [address] Phone Care Team Providers Care Mold Filler Plastic Dolls Name Role Phone Terri Clark MD Primary Care Provider [phone] Allergies Active Allergy Reactions Criticality Noted Date Comments Cat Dander Swelling Low 02/05/2017 Medications atorvastatin (LIPITOR) 40 MG tablet Take 40 mg by mouth every night Active aspirin 81 MG chewable tablet Chew 81 mg in the morning. 01/25/2022 Active hydroCHLOROthiaz iveth 25 MG tablet Take 25 mg by mouth 1 (one) time each day Active lisinopril 40 MG tablet Take 40 mg by mouth 1 (one) time each day Active metFORMIN (GLUCOPHAGE) 500 MG tablet Take 500 mg by mouth in the morning and 500 mg in the evening. 10/02/2024 Active naproxen (NAPROSYN) 500 MG tablet Take 500 mg by mouth in the morning and 500 mg in the evening. 06/09/2024 Active sildenafil (VIAGRA) 100 MG tablet Take 100 mg by mouth every other day if needed 12/08/2023 Active Testosterone Undecanoate (Aveed) 750 MG/3ML solution 03/12/2023 Act itz Active Problems Problem Noted Date Diagnosed Date Renal disorder due to type 2 diabetes mellitus 0 10/06/2024 Chronic kidney disease 01/23/2022 Overview (10/05/2024): mild Diabetes mellitus 01/23/2022 Hypertensive disorder 04/23/2017 Social History Tobacco Use Types Packs/Day Years Used Date Smoking Tobacco: Never Assessed Sex and Gender Information Value Date Recorded Sex Assigned at Not on file Legal Sex Male 12:59 PM EDT Gender Identity Not on file Sexual Orientation Not on file Plan of Treatment Upcoming Encounters Date Type Department Care Team (Late st Contact Info) Description 04/12/2025 10:00 AM EST Office Visit [facility], [address] [place] [phone] Osbaldo Hopkins MD [address] [place] [phone] Health Maintenance Due Date Last Done Comments Colorectal Cancer Screening: Annual FOBT 07/27/2003 Colorectal Cancer Screening: Colonoscopy 07/27/2003 Colorectal Cancer Screening: Sigmoidoscopy 07/27/2003 Diabetes: Hemoglobin A1C 08/08/2024 Diabetes: Ophthalmology Exam 08/08/2024 Diabetes: Pedal Pulse Checked 08/08/2024 Diabetes: Sensory Foot Exam 08/08/2024 Diabetes: Visual Foot Exam 08/08/2024 Influenza Vaccine (#1) 2024 4, 12/19/2021, 12/26/2020, Additional history exists Hepatitis B Vaccine Aged Out 02/27/2021 No longe r eligible based on patient's age to complete this topic Pneumococcal Vaccine: 50+ Years Completed 02/06/2022, 01/17/2020 Insurance [facility] Care Teams Mold Filler Plastic Dolls Relationship Specialty Start Date End Date Terri Clark MD [address] [place] [address], 2nd [place] [address] PCP - General Internal Medicine 08/08/24
--- OUTSIDE RECORDS SUMMARY | 2025-01-25 10:36 | XMS_ITS | Encounter Summary ---
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, 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, [employer] Not on file Not on file Not on file documented as of this encounter Plan of Treatment Upcoming Encounters Date Type Department Care Team (Late st Contact Info) Description 01/26/2025 8:00 AM EST Office Visit [facility] [place] [address] Floor, [address] [place] [address] Ghulam Mata MD [address] [place] [address] 02/16/2025 9:00 AM EST Appointment [address] [address] Alexis Desir MD [address] [place] [address] 02/16/2025 10:00 AM EST Appointment [address] [address] Alexis Desir MD [address] [place] [address] 02/16/2025 11:00 AM EST Appointment Non-Invasive Cardiology [address] [place] [address] Alexis Desir MD [address] [place] [address] 02/16/2025 12:00 PM EST Appointment [address] [address] Alexis Desir MD [address] [place] [address] documented as of this encounter Visit Diagnoses Not on filedocumented in this encounter Additional Health Concerns Assessment Noted Time A Body Mass Index follow-up plan has been documented for the patient 04/23/2017 8:55 PM EST PHQ-2 Depression Total Score: 0 04/11/19 24 4:39 PM EST documented as of this encounter Care Teams Oncology Registrar Relationship Specialty Start Date End Date Alexis Desir MD [address] [place] [address], [address] [place] [address] [email or web address] PCP - General 03/17/17 Alexis Desir MD [address] [place] [address] [email or web address] Historical LMR Provider 12/26/16 Ghulam Hancock MD [address] [place] [address] [email or web address] Historical LMR Provider 12/26/16 documented as of this encounter Additional Source Comments The information contained in this document represents components of the legal health record. It is not the complete legal health record.[facility]
--- OUTSIDE RECORDS SUMMARY | 2025-01-25 10:37 | XMS_ITS | Encounter Summary ---
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 Wish to be (Past 1 Month) No 022 11:55 AM Anai Moore RN 2. Non-Specific Active Suici oleg Thoughts (Past 1 Month) No 01/23/2022 11:55 AM Kimberly Moore RN 6. Suicidal Behavior (Lifetime) No 11:55 AM Anai Moore RN documented as of this encounter Plan of Treatment Upcoming Encounters Date Type Department Care Team (Late st Contact Info) Description 01/26/2025 8:00 AM EST Office Visit [facility] [address] [place] [address] 3rd Floor, [address] [place] [address] Ghulam Mata MD [address] [place] [address] [email or web address] 02/16/2025 9:00 AM EST Appointment [address] [address] Alexis Desir MD [address] [place] [address] [email or web address] 02/16/2025 10:00 AM EST Appointment [address] [address] Alexis Desir MD [address] [place] [address] [email or web address] 02/16/2025 11:00 AM EST Appointment Non-Invasive Cardiology [address] [place] [address] Alexis Desir MD [address] [place] [address] [email or web address] 02/16/2025 12:00 PM EST Appointment [address] [address] Alexis Desir MD [address] [place] [address] [email or web address] documented as of this encounter Visit Diagnoses Not on filedocumented in this encounter Additional Health Concerns Assessment Noted Time A Body Mass Index follow-up plan has been documented for the patient 04/23/2017 8:55 PM EST PHQ-2 Depression Total Score: 0 04/25/19 22 1:03 PM EST documented as of this encounter Care Teams Field Aide Relationship Specialty Start Date End Date Alexis Desir MD [address] [place] [address] PCP - General 03/17/17 Alexis Desir MD [address] [place] [address] [email or web address] Historical LMR Provider 12/26/16 Ghulam Hancock MD [address] [place] [address] [email or web address] Historical LMR Provider 12/26/16 documented as of this encounter Additional Source Comments The information contained in this document represents components of the legal health record. It is not the complete legal health record.[facility]
--- OUTSIDE RECORDS SUMMARY | 2025-01-25 10:37 | XMS_ITS | Encounter Summary ---
Author Organization [facility] Address [address] [place] [address] [place] [address] Phone Care Team Providers Care Digital Campaign Manager Name Role Phone Alexis Desir MD Unavailable Jose Hurt MD Unavailable Ghulam Hanocck MD Unavailable Alexis Desir MD Primary Care Provider Encounter Details Date Type Department Care Team (Latest Contact Info) Description 03/06/2020 Transcribe Orders [address] [place] [address] Henry Alvarez MD [address] [place] [address], [address] [address] [email or web address] Erectile dysfunction due to diseases classified [...] Industry Job Start Date Job End 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, [employer]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, [employer] Not on file Not on file Not on file documented as of this encounter Plan of Treatment Upcoming Encounters Date Type Department Care Team (Late st Contact Info) Description 01/26/2025 8:00 AM EST Office Visit [facility] [address] [place] [address] 3rd Floor, [address] [place] [address] Ghulam Mata MD [address] [place] [address] [email or web address] 02/16/2025 9:00 AM EST Appointment [address] [address] Alexis Desir MD [address] [place] [address], [address] [place] [address] [email or web address] 02/16/2025 10:00 AM EST Appointment [address] [address] Alexis Desir MD [address] [place] [address] [email or web address] 02/16/2025 11:00 AM EST Appointment Non-Invasive Cardiology [address] [place] [address] Alexis Desir MD [address] [place] [address] [email or web address] 02/16/2025 12:00 PM EST Appointment [address] [address] Alexis Desir MD [address] [place] [address] [email or web address] documented as of this encounter Results * PSA (screening) (03/06/2020 10:03 AM EST) PSA 1.75 0 - 4.00 ng/mL [facility] Blood 03/06/2020 10:0 3 AM EST 03/06/2020 10:06 AM EST us Henry Alvarez MD LAB BLOOD BKR ORDERABLES Final Result Performing Organization Address City/[facility]/ZIP Co de Phone Number [address] [address] * (ABNORMAL) Testosterone, total (03/06/2020 10:03 AM EST) TESTOSTERONE 215(L) 249 - 836 ng/dL [facility] Blood 03/06/2020 10:0 3 AM EST 03/06/2020 10:06 AM EST Henry Alvarez MD LAB BLOOD BKR ORDERABLES Final Result Performing Organization Address City/[facility]/ZIP Co de Phone Number [address] [address] documented in this encounter Visit Diagnoses Diagnosis Erectile dysfunction due to diseases classified elsewhere- Primary documented in this encounter Additional Health Concerns Assessment Noted Time A Body Mass Index follow-up plan has been documented for the patient 04/23/2017 8:55 PM EST PHQ-2 Depression Total Score: 0 04/25/19 19 8:17 AM EST documented as of this encounter Care Teams Digital Campaign Manager Relationship Specialty Start Date End Date Alexis Desir MD [address] [place] [phone] PCP - General 03/17/17 Alexis Desir MD [address] [place] [address] Historical LMR Provider 12/26/16 Jose Hurt MD [address] [place] [address] [email or web address] Historical LMR Provider 12/26/16 03/15/21 Ghulam Hancock MD [address] [place] [address] 2[address] [place] [address] [email or web address] Historical LMR Provider 12/26/16 documented as of this encounter Additional Source Comments The information contained in this document represents components of the legal health record. It is not the complete legal health record.[facility]
--- OUTSIDE RECORDS SUMMARY | 2025-01-25 10:37 | XMS_ITS | Encounter Summary ---
Author Organization [facility] Address [address] [place] [address] Phone Care Team Providers Care Computer Programmer Name Role Phone Alexis Desir MD Unavailable [phone] Ghulam Hancock MD Unavailable [phone] Alexis Desir MD Primary Care Provider [phone] Reason for Referral * - Closed Specialty Diagnoses / Procedures Referred By Juan Luis lawton Referred To Contact Diagnoses TIA (transient ischemic attack) Procedures MCT (Mobile Cardiac Telemetry) Santiago Liang DO Phone: tel: fax: mailto: Referral ID Status Reason Start Date Expiration Date Visits Re quested Visits Authorized [id number] Closed 02/04/2022 02/04/2023 1 1 Encounter Details Date Type Department Care Team (Latest Contact Info) Description 02/04/2022 Ancillary Orders [facility] [address] 3rd Floor, [address] [place] [address] Santiago Liang DO [address] [place] [address] [email or web address] TIA (transient ischemic attack) Social History Tobacco Use Types Packs/Day Years [...] high school, GED, job training, learning the Palestinian language, technical skills, or developing parenting skills)? [...] have you moved in the past 12 wed th? One time 02/06/2022 Paying for Meds Answer [...] basis, and looking for work? 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, [employer] Not on file Not on file Not on file documented as of this encounter Plan of Treatment Upcoming Encounters Date Type Department Care Team (Late st Contact Info) Description 01/26/2025 8:00 AM EST Office Visit [facility] [address] [facility] [address] 3rd Floor, [address] [place] [address] Ghulam Mata MD [address] [place] [address] [email or web address] 02/16/2025 9:00 AM EST Appointment [address] [address] Alexis Desir MD [address] [place] [address] [email or web address] 02/16/2025 10:00 AM EST Appointment [address] [address] Alexis Desir MD [address] [place] [address] [email or web address] 02/16/2025 11:00 AM EST Appointment Non-Invasive Cardiology [address] [place] [address] Alexis Desir MD [address] [place] [phone] [email or web address] 02/16/2025 12:00 PM EST Appointment [address] [address] Alexis Desir MD [address] [place] [address] [email or web address] Scheduled Orders Name Type Priority Associated Diagnoses Orde r Schedule MCT (Mobile Cardiac Telemetry) Cardiac Monitors Routine TIA (transient ischemic attack) Expected: 02/09/2022, Expires: 04/28/2022 documented as of this encounter Visit Diagnoses Diagnosis TIA (transient ischemic attack) Unspecified transient cerebral ischemia documented in this encounter Additional Health Concerns Assessment Noted Time A Body Mass Index follow-up plan has been documented for the patient 04/23/2017 8:55 PM EST PHQ-2 Depression Total Score: 0 04/25/19 22 1:03 PM EST documented as of this encounter Care Teams Computer Programmer Relationship Specialty Start Date End Date Alexis Desir MD [address] [place] [address] [email or web address] PCP - General 03/17/17 Alexis Desir MD [address] [place] [address] [email or web address] Historical LMR Provider 12/26/16 Ghulam Hancock MD [address] [place] [address] [email or web address] Historical LMR Provider 12/26/16 documented as of this encounter Additional Source Comments The information contained in this document represents components of the legal health record. It is not the complete legal health record.[facility]
--- OUTSIDE RECORDS SUMMARY | 2025-01-25 10:37 | XMS_ITS | Encounter Summary ---
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, [employer]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, [employer] Not on file Not on file Not on file documented as of this encounter Plan of Treatment Upcoming Encounters Date Type Department Care Team (Late st Contact Info) Description 01/26/2025 8:00 AM EST Office Visit [facility] [place] [address]rd Floor, [address] [place] [address] Ghulam Mata MD [address] [place] [address] [email or web address] 02/16/2025 9:00 AM EST Appointment [address] [address] Alexis Desir MD [address] [place] [address] [email or web address] 02/16/2025 10:00 AM EST Appointment [address] [address] Alexis Desir MD [address] [place] [address] [email or web address] 02/16/2025 11:00 AM EST Appointment Non-Invasive Cardiology [address] [place] [address] Alexis Desir MD [address] [place] [address] [email or web address] 02/16/2025 12:00 PM EST Appointment [address] [address] Alexis Desir MD [address] [place] [address] documented as of this encounter Visit Diagnoses Not on filedocumented in this encounter Additional Health Concerns Assessment Noted Time A Body Mass Index follow-up plan has been documented for the patient 04/23/2017 8:55 PM EST PHQ-2 Depression Total Score: 0 04/25/19 19 8:17 AM EST documented as of this encounter Care Teams Hand Sign Writer Relationship Specialty Start Date End Date Alexis Desir MD [address] [place] [address] [email or web address] PCP - General 03/17/17 Alexis Desir MD [address] [place] [address] Historical LMR Provider 12/26/16 Jose Hurt MD [address] [place] [address] [email or web address] Historical LMR Provider 12/26/16 03/15/21 Ghulam Hancock MD [address] [place] [address] [email or web address] Historical LMR Provider 12/26/16 documented as of this encounter Additional Source Comments The information contained in this document represents components of the legal health record. It is not the complete legal health record.[facility]
--- OUTSIDE RECORDS SUMMARY | 2025-01-25 10:37 | XMS_ITS | Encounter Summary ---
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, [employer]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, [employer] Not on file Not on file Not on file documented as of this encounter Functional Status * Calculated C-SSRS Risk Score (Lifetime/Recent) Answer Date of Assessment Author No Risk Indicated 01/23/2022 11:55 AM EST Ania Mccarthy, RN * [place] Suicide Severity Rating Scale (Screener/Recent Self-Report) Question [...] Description 01/26/2025 8:00 AM EST Office Visit [facility] [address] [place] [address] 3rd Floor, [address] [place] [address] Ghulam Mata MD [address] [place] [address] 02/16/2025 9:00 AM EST Appointment [address] [address] Alexis Desir MD [address] [place] [address] 02/16/2025 10:00 AM EST Appointment [address] [address] Alexis Desir MD [address] [place] [address] 02/16/2025 11:00 AM EST Appointment Non-Invasive Cardiology [address] [place] [address] Alexis Desir MD [address] [place] [address] 02/16/2025 12:00 PM EST Appointment [address] [address] Alexis Desir MD [address] [place] [address] [email or web address] documented as of this encounter Visit Diagnoses Not on filedocumented in this encounter Additional Health Concerns Assessment Noted Time A Body Mass Index follow-up plan has been documented for the patient 04/23/2017 8:55 PM EST PHQ-2 Depression Total Score: 0 04/25/19 22 1:03 PM EST documented as of this encounter Care Teams Converter Operator Relationship Specialty Start Date End Date Alexis Desir MD [address] [place] [address] [email or web address] PCP - General 03/17/17 Alexis Desir MD [address] [place] [address] [email or web address] Historical LMR Provider 12/26/16 Ghulam Hancock MD [address] [place] [address] [email or web address] Historical LMR Provider 12/26/16 documented as of this encounter Additional Source Comments The information contained in this document represents components of the legal health record. It is not the complete legal health record.[facility]
--- OUTSIDE RECORDS SUMMARY | 2025-01-25 10:37 | XMS_ITS | Encounter Summary ---
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, [employer]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, [employer]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 on file Not on file Not on file documented as of this encounter Functional Status * Calculated C-SSRS Risk Score (Lifetime/Recent) Answer Date of Assessment Author No Risk Indicated 01/23/2022 11:55 AM EST Anai Mccarthy, RN * [place] Suicide Severity Rating Scale (Screener/Recent Self-Report) Question [...] Description 01/26/2025 8:00 AM EST Office Visit [facility] [address] [place] [address] 3rd Floor, [address] [place] [address] Ghulam Mata MD [address] [place] [address] 02/16/2025 9:00 AM EST Appointment [address] [address] Alexis Desir MD [address] [place] [address] 02/16/2025 10:00 AM EST Appointment [address] [address] Alexis Desir MD [address] [place] [address] 02/16/2025 11:00 AM EST Appointment Non-Invasive Cardiology [address] [place] [address] Alexis Desir MD [address] [place] [address] 02/16/2025 12:00 PM EST Appointment [address] [address] Alexis Desir MD [address] [place] [address] [email or web address] documented as of this encounter Visit Diagnoses Not on filedocumented in this encounter Additional Health Concerns Assessment Noted Time A Body Mass Index follow-up plan has been documented for the patient 04/23/2017 8:55 PM EST PHQ-2 Depression Total Score: 0 04/25/19 22 1:03 PM EST documented as of this encounter Care Teams Carbon Brushes Assembler Relationship Specialty Start Date End Date Alexis Desir MD [address] [place] [address] PCP - General 03/17/17 Alexis Desir MD [address] [place] [address] [email or web address] Historical LMR Provider 12/26/16 Ghulam Hancock MD [address] [place] [address] [email or web address] Historical LMR Provider 12/26/16 documented as of this encounter Additional Source Comments The information contained in this document represents components of the legal health record. It is not the complete legal health record.[facility]
--- OUTSIDE RECORDS SUMMARY | 2025-01-25 10:37 | XMS_ITS | Encounter Summary ---
Author Organization [facility], Address [address] [place] [address] Phone Care Team Providers Care Government Services Professional Name Role Phone Terri Clark MD Primary Care Provider [phone] Encounter Details Date Type Department Care Team (Late st Contact Info) Description 08/08/2024 Documentation Only [facility] [address] [place] [address] [place], [place] [address] [place] [phone] Social History Tobacco Use Types Packs/Day Years Used Date Smoking Tobacco: Never Assessed Sex and Gender Information Value Date Recorded Sex Assigned at Not on file Legal Sex Male 12:59 PM EDT Gender Identity Not on file Sexual Orientation Not on file documented as of this encounter Plan of Treatment Upcoming Encounters Date Type Department Care Team (Late st Contact Info) Description 04/12/2025 10:00 AM EST Office Visit [facility] [address] [place] [phone] Osbaldo Hopkins MD [address] [place] [address] [place] [address] documented as of this encounter Visit Diagnoses Not on filedocumented in this encounter Care Teams Government Services Professional Relationship Specialty Start Date End Date Terri Clark MD [address] [place] [address], 2nd [place] [address] PCP - General Internal Medicine 08/08/24 documented as of this encounter
== END 2025-01-25 09:49 | disposition home or self-care (01) ==
LOC: HO.HUSH 08:54
PROVIDERS: PCP Pediatrics; Visit Provider Urology
DX: N40.1 Benign prostatic hyperplasia with lower urinary tract symptoms (principal); R35.1 Nocturia; N52.9 Male erectile dysfunction, unspecified; R39.15 Urgency of urination
CPT/HCPCS: 99204

== ENCOUNTER → 2025-01-25 08:53 | Outpatient (BNVA) | payer MEDICARE, SELFPAY | PROVIDERS: PCP Pediatrics; Visit Provider Urology | DX: N40.1 Benign prostatic hyperplasia with lower urinary tract symptoms (principal); R35.1 Nocturia; N52.9 Male erectile dysfunction, unspecified; R39.15 Urgency of urination | CPT/HCPCS: 81003; 99202 ==